=== PATIENT | female | born 2005 | race African-American/Black ===

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

== ENCOUNTER 2024-03-16 15:43 | Emergency (ER) | payer OTHER ==
[~2024-03-16] VITALS: Ht 170.2 cm; Wt 54.6 kg
[2024-03-16] MEDS ORDERED: AMOX875T2 PO (19:25)
[2024-03-16] MEDS ORDERED: IBUP-1022 PO (19:25)
[2024-03-16] MEDS: AUGMENTIN 875 MG TAB PO ONE (19:30)
[2024-03-16 19:31] VITALS: BP 110/66; TEMP 97.3; O2SAT 100
== END 2024-03-16 19:32 | disposition home or self-care (01) ==
LOC: M ED 15:43
DX: K12.2 Cellulitis and abscess of mouth (principal); R56.9 Unspecified convulsions; J45.909 Unspecified asthma, uncomplicated

== ENCOUNTER 2024-04-22 15:53 | Emergency (ER) | payer OTHER ==
[~2024-04-22] VITALS: Ht 170.2 cm; Wt 52.8 kg
[~2024-04-22 15:53] MED LIST changes: +AMOX875T2 PO; +IBUP-1022 PO
[2024-04-22 17:52] LABS: Trichomonas vaginalis (AMP) NOT DETECTED (NEGATIVE)
[2024-04-22 18:06] LABS: HEPATITIS B SURFACE ANTIBODY NEGATIVE (POSITIVE)
[2024-04-22 18:16] LABS: GC DNA AMPLIFICATION NEGATIVE (NEGATIVE)
[2024-04-22 18:18] LABS: HEPATITIS B SURFACE ANTIGEN NEGATIVE (NEGATIVE)
[2024-04-22 18:23] VITALS: BP 112/68; TEMP 98.7; O2SAT 100
[2024-04-22 18:30] LABS: HIV 1&2 SCREEN NEGATIVE (NEGATIVE)
[2024-04-22 18:38] LABS: HEPATITIS C VIRUS ABY INDEX 0.07 INDEX (<0.8)
[2024-04-22] MEDS ORDERED: SULF1TAB23 PO (19:46)
== END 2024-04-22 20:02 | disposition home or self-care (01) ==
LOC: M ED 15:53
DX: N30.00 Acute cystitis without hematuria (principal); Z72.51 High risk heterosexual behavior; R56.9 Unspecified convulsions; Z86.19 Personal history of other infectious and parasitic diseases; F17.290 Nicotine dependence, other tobacco product, uncomplicated

== ENCOUNTER 2024-12-06 09:30 | Emergency (ER) | payer OTHER ==
[~2024-12-06] VITALS: Ht 170.2 cm; Wt 53.4 kg
[~2024-12-06 09:30] MED LIST changes: +SULF1TAB23 PO
[2024-12-06] MEDS: ACETAMINOPHEN 325 MG TAB PO ONE (12:21)
[2024-12-06 12:40] LABS: BASO # 0.1 10^3/uL (0.0-0.2); BASO % 0.5 % (0.0-1.0); EOS # 0.3 10^3/uL (0.0-0.5); EOS % 2.3 % (0.0-3.0); LYMPH # 1.9 10^3/uL (1.5-5.0); LYMPH % 14.2 % (24.0-44.0); MONO # 0.5 10^3/uL (0.0-0.8); MONO % 4.0 % (2.0-8.0); NEUTROPHILS # 10.2 10^3/uL (1.5-8.5); NEUTROPHILS % 78.8 % (36.0-66.0); PLATELET COUNT, AUTOMATED 354 10^3/uL (150-450)
[2024-12-06 13:07] LABS: CK-MB VALUE MASS < 1.0 NG/ML (<3.6)
[2024-12-06 13:09] LABS: CALCIUM LEVEL 9.1 MG/DL (8.5-10.1); CARBON DIOXIDE LEVEL 27 MMOL/L (20-31); CHLORIDE LEVEL 104 MMOL/L (98-107); CPK CREATINE PHOSPHOKINASE 46 U/L (34-145); CREATININE FOR GFR 0.64 MG/DL (0.55-1.30); GLOMERULAR FILTRATION RATE > 90.0 (>60); POTASSIUM SERUM 3.9 MMOL/L (3.5-5.1); SODIUM LEVEL 140 MMOL/L (136-145)
[2024-12-06 14:04] LABS: Trichomonas vaginalis (AMP) NOT DETECTED (NEGATIVE)
[2024-12-06 14:27] LABS: GC DNA AMPLIFICATION NEGATIVE (NEGATIVE)
[2024-12-06 14:43] VITALS: BP 102/61; TEMP 98.2; O2SAT 99
[2024-12-06] MEDS ORDERED: VENTAER INH (15:20)
== END 2024-12-06 15:27 | disposition home or self-care (01) ==
LOC: M ED 09:30
DX: O99.891 Other specified diseases and conditions complicating pregnancy (principal); R07.89 Other chest pain; O99.511 Diseases of the respiratory system complicating pregnancy, first trimester; J45.909 Unspecified asthma, uncomplicated; Z87.891 Personal history of nicotine dependence; Z3A.00 Weeks of gestation of pregnancy not specified

== ENCOUNTER → 2024-12-31 | Outpatient (CLI) | payer OTHER ==
[~2024-12-31] MED LIST changes: -IBUP-1022 PO; +IBUP600T42 PO; +VENTAER INH
[2024-12-31 14:27] LABS: PLATELET COUNT, AUTOMATED 392 10^3/uL (150-450)
[2024-12-31 14:56] LABS: HIV 1&2 SCREEN NEGATIVE (NEGATIVE)
[2024-12-31 15:04] LABS: HEPATITIS C VIRUS ABY INDEX < 0.02 INDEX (<0.8)
[2024-12-31 15:10] LABS: Trichomonas vaginalis (AMP) NOT DETECTED (NEGATIVE)
[2024-12-31 15:34] LABS: GC DNA AMPLIFICATION NEGATIVE (NEGATIVE)
== END ==
LOC: M PLALAB 08:48
PROVIDERS: ATTEND Nurse Practitioner Family
DX: Z36.9 Encounter for antenatal screening, unspecified (principal)

== ENCOUNTER → 2024-12-31 | Outpatient (REF) | payer OTHER | LOC: M PLALAB 08:32 | PROVIDERS: ATTEND Nurse Practitioner Family | DX: Z53.9 Procedure and treatment not carried out, unspecified reason (principal); Z34.80 Encounter for supervision of other normal pregnancy, unspecified trimester ==

== ENCOUNTER → 2025-01-27 | Outpatient (REF) | payer OTHER | LOC: M LAB REF 15:15 | PROVIDERS: ATTEND Nurse Practitioner Family | DX: Z34.92 Encounter for supervision of normal pregnancy, unspecified, second trimester (principal) ==

== ENCOUNTER 2025-02-09 12:37 | Outpatient (CLI) | payer OTHER ==
[~2025-02-09] VITALS: Ht 165.1 cm; Wt 57.7 kg
[2025-02-09] MEDS ORDERED: PRENTAB9 PO (12:55)
[2025-02-09 12:57] VITALS: BP 105/56
== END 2025-02-09 15:05 | disposition home or self-care (01) ==
LOC: M LDO 12:37
PROVIDERS: ATTEND Advanced Practice Midwife
DX: O26.853 Spotting complicating pregnancy, third trimester (principal); O99.332 Smoking (tobacco) complicating pregnancy, second trimester; O35.9XX0 Maternal care for (suspected) fetal abnormality and damage, unspecified, not applicable or unspecified; F17.290 Nicotine dependence, other tobacco product, uncomplicated; Z3A.20 20 weeks gestation of pregnancy
CPT/HCPCS: 59025; 76811; 76817; G0463